=== PATIENT | female | born 1990 ===

== ENCOUNTER 2018-11-28 18:59 | Emergency (ER) | payer OTHER ==
[2018-11-28 19:26] VITALS: O2SAT 98
--- NOTE | 2018-11-28 20:01 | ED PDOC ---
HPI: Back Time Seen by Provider: 11/28/18 19:50 Chief Complaint (Nursing): Back Pain Chief Complaint (Provider): Female genitourinary History Per: Patient, Dowel Pointer (kimzack #[id number]) History/Exam Limitations: no limitations Onset/Duration Of Symptoms: Days (4x days) Current Symptoms Are (Timing): Still Present Severity: Moderate Additional Complaint(s): 28 year old female with no pertinent past medical history (last menstrual period 7x days ago) presents to the ED for an evaluation of a genitourinary problem that started 3x days ago. Patient reports that 3x days ago she began experiencing suprapubic pain, and back pain which felt as if it was in the kidneys. Patient reports increased urinary frequency, dysuria, and hematuria. Patient denies having a history of diabetes. PMD: None provided. Past Medical History Reviewed: Historical Data, Nursing Documentation, Vital Signs Vital Signs: Last Vital Signs Temp 98.6 F 11/28/18 19:21 Pulse 85 11/28/18 19:21 Resp 16 11/28/18 19:21 BP 107/64 11/28/18 19:21 Pulse Ox 98 11/28/18 19:21 CHARU Report Viewed: Yes - Medical History PMH: No Chronic Diseases Denies: Diabetes - Family History Family History: States: No Known Family Hx - Social History Drugs: Denies - Home Medications Home Medications: Ambulatory Orders Medication Instructions Recorded Sulfamethoxazole/Trimethoprim 1 tab PO BID #20 tab 11/28/18 [Bactrim DS 800 mg-160 mg] - Allergies Allergies/Adverse Reactions: Allergies Allergy/AdvReac Type Severity Reaction Status Date / Time No Known Allergies Allergy Verified 11/28/18 19:26 Review of Systems ROS Statement: Except As Marked, All Systems Reviewed And Found Negative Genitourinary Female: Positive for: Dysuria, Frequency (increased urinary frequency), Hematuria Musculoskeletal: Positive for: Back Pain (bilateral middle back) Physical Exam - Reviewed Nursing Documentation Reviewed: Yes Vital Signs Reviewed: Yes - Physical Exam Appears: Positive for: Well, Non-toxic, No Acute Distress Head Exam: Positive for: ATRAUMATIC, NORMOCEPHALIC Skin: Positive for: Normal Color, Warm, Dry. Negative for: Diaphoresis, Pallor, Rash Eye Exam: Positive for: Normal appearance Neck: Positive for: Normal, Painless ROM, Supple. Negative for: Decreased ROM Cardiovascular/Chest: Positive for: Regular Rate, Rhythm Respiratory: Positive for: Normal Breath Sounds Gastrointestinal/Abdominal: Positive for: Normal Exam, Soft. Negative for: Tenderness Back: Positive for: L CVA Tenderness, R CVA Tenderness Neurologic/Psych: Positive for: Alert, Oriented (3x) - Laboratory Results Result Diagrams: 11/28/18 21:15 11/28/18 21:15 - ECG O2 Sat by Pulse Oximetry: 98 (RA) Pulse Ox Interpretation: Normal Medical Decision Making Medical Decision Makin:50 Initial impression: 28 year old female with a female genitourinary problem. Initial plan: * CMP * CBC * urine c&s * urinalysis * reevaluation Pt is afebrile and comfortable at discharge; pt diagnosis was discussed, pt given primer treatment in ED and rx at discharge Scribe Attestation: Documented Esme Head, acting as a scribe for Willian Mosley PA-C. Provider Scribe Attestation: All medical record entries made by the Scribe were at my direction and personally dictated by me. I have reviewed the chart and agree that the record accurately reflects my personal performance of the history, physical exam, medical decision making, and the department course for this patient. I have also personally directed, reviewed, and agree with the discharge instructions and disposition. Disposition - Clinical Impression Clinical Impression: Pyelonephritis - Patient ED Disposition Is Patient to be Admitted: No Doctor Will See Patient In The: Office Counseled Patient/Family Regarding: Studies Performed, Diagnosis, Need For Fo llowup, Rx Given - Disposition Referrals: [facility] [Outside] [facility] [Outside] [facility] [Outside] Disposition: Routine/Home Disposition Time: 22:03 Condition: STABLE Prescriptions: Sulfamethoxazole/Trimethoprim [Bactrim DS 800 mg-160 mg] 1 tab PO BID #20 tab Instructions: Urinary Tract Infection, Adult (DC), Kidney Infection (DC), Urinary Tract Infections in Adults Forms: [employer] (Dominican), [employer] (Dutch) Print Language: RUSSIAN
[2018-11-28 21:36] LABS: BASO % 0.3 % (0.0-2.0); EOS # 0.1 K/uL (0.0-0.7); EOS % 0.7 % (0.0-4.0); HEMOGLOBIN 13.1 g/dL (12.0-16.0); LYMPH # 1.7 K/uL (1.0-4.3); LYMPH % 16.5 % (20.0-40.0); MEAN CORPUSCULAR HEMOGLOBIN 27.3 pg (27.0-31.0); MEAN CORPUSCULAR HGB CONC 32.6 g/dL (33.0-37.0); MEAN PLATELET VOLUME 9.2 fl (7.2-11.7); MONO # 0.9 K/uL (0.0-0.8); MONO % 8.9 % (0.0-10.0); NEUT # 7.7 K/uL (1.8-7.0); NEUT % 73.6 % (50.0-75.0); NRBC % 0.3 % (0.0-0.0); RBC 4.8 Mil/uL (3.80-5.20); RED CELL DISTRIBUTION WIDTH 13.9 % (11.5-14.5); WHITE BLOOD COUNT 10.4 K/uL (4.8-10.8)
[2018-11-28 21:41] LABS: SQUAMOUS EPITHIAL 4 /hpf (0-5); URINE BACTERIA MANY (<OCC); URINE BILIRUBIN NEGATIVE (NEGATIVE); URINE BLOOD MODERATE (NEGATIVE); URINE CLARITY CLOUDY (Clear); URINE COLOR YELLOW (YELLOW); URINE GLUCOSE (UA) NEG (NEGATIVE); URINE LEUKOCYTE ESTERASE LARGE Leu/uL (Negative); URINE PROTEIN 100 mg/dL (NEGATIVE)
[2018-11-28 21:44] LABS: ALB/GLOB RATIO 1.3 (1.0-2.1); ALBUMIN 4.7 g/dL (3.5-5.0); BLOOD UREA NITROGEN 17 mg/dl (7-17); CALCIUM 9.4 mg/dL (8.4-10.2); GFR NON-AFRICAN AMERICAN > 60
[2018-11-28] MEDS ORDERED: Tmp-Smz 800 mg-160 mg DS Tab PO STA (21:50)
[2018-11-28 21:52] LABS: ALT/SGPT 9 U/L (9-52); AST/SGOT 38 U/L (14-36)
[2018-11-28] MEDS ORDERED: Tmp-Smz 800 mg-160 mg DS Tab ONE (22:04)
[2018-11-28 22:12] VITALS: BP 111/75; PULSE 89; RESP 18; TEMP 98.4
== END 2018-11-28 22:00 | disposition home or self-care (01) ==
LOC: H.ER 18:59
DX: N12 Tubulo-interstitial nephritis, not specified as acute or chronic (principal)